=== PATIENT | female | born 1990 | race Two or more races ===

== ENCOUNTER 2022-06-11 07:40 | Observation (INO) | payer MEDICAID, OTHER ==
[~2022-06-11] VITALS: Ht 157.5 cm; Wt 72.1 kg
== END 2022-06-11 09:18 | disposition home or self-care (01) ==
LOC: LDRP 07:40
PROVIDERS: ADMIT Obstetrics & Gynecology; ATTEND Obstetrics & Gynecology
DX: O62.9 Abnormality of forces of labor, unspecified (principal); Z3A.38 38 weeks gestation of pregnancy
CPT/HCPCS: 59025; 81002; 94760; G0378